=== PATIENT | male | born 1990 ===

== ENCOUNTER 2020-03-09 16:38 | Emergency (ER) | payer BC, SELFPAY ==
[2020-03-09 16:39] VITALS: BP 135/94; PULSE 96; RESP 16; TEMP 37; O2SAT 96
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
[2020-03-09] MEDS: Lidocaine/Epinephri/Tetracaine Topical Gel 3 ML (17:03)
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
[2020-03-09 18:19] VITALS: BP 122/82; PULSE 84; RESP 16; TEMP 36.4; O2SAT 98
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
== END 2020-03-09 18:38 | disposition home or self-care (01) ==
PROVIDERS: Emergency Provider Nurse Practitioner Acute Care
DX: S01.81XA Laceration without foreign body of other part of head, initial encounter (principal); T17.908A Unspecified foreign body in respiratory tract, part unspecified causing other injury, initial encounter; V94.31XA Injury to rider of (inflatable) recreational watercraft being pulled behind other watercraft, initial encounter
CPT/HCPCS: 12001; 90471; 70450; 71046; 72125